=== PATIENT | female | born 1980 | race Two or more races ===

== ENCOUNTER 2019-04-05 23:13 | Emergency (ER) | payer OTHER ==
[~2019-04-05] VITALS: Ht 157.5 cm; Wt 68.0 kg
[2019-04-05 23:20] VITALS: BP 122/74
[2019-04-05] MEDS ORDERED: BACITRACIN TOPICAL OINT PACKET. TP STA (23:50)
--- NOTE | 2019-04-06 00:06 | PHYS DOC ---
Past Medical History Past Medical History: No Pertinent History (CHRISSY AGUILAR APRN) Past Surgical History: Other Additional Past Surgical Histo: Cyst removal from ovary (CHRISSY AGUILAR APRN) Smoking Status: Never Smoker Alcohol Use: None Drug Use: None (CHRISSY AGUILAR APRN) Attending Signature I have participated in the care of this patient and I have reviewed and agree with all pertinent clinical information above including history, exam, and recommendations. (NICKI BEAL MD) Adult General Chief Complaint Chief Complaint: [facility] HPI Patient is a 39 year old female who presents with a burn to the medial R forearm. The burn happened at work when she accidentally spilt cooking oil on the R forearm. She denies any medical history. She states that this injury happened around 5:00 PM. Complete ROS were reviewed and found to be within normal limits, except as documented in the HPI (CHRISSY AGUILAR APRN) Current Medications Current Medications Current Medications Medications (Trade) Dose Ordered Sig/Cha Start Time Stop Time Status Last Admin Dose Admin Bacitracin (Bacitracin Zinc Oint Pkt) 1 pkt 1X STAT 04/05/19 23:50 04/06/19 00:01 DC 04/05/19 23:55 1 PKT (NICKI BEAL MD) Allergies Allergies Allergies Coded Allergies Type Severity Reaction Last Updated Verified Unable to Assess 04/06/19 No (NICKI BEAL MD) Physical Exam Physical Exam Constitutional: Well developed, well nourished, no acute distress, non-toxic appearance. [] HENT: Normocephalic, atraumatic, bilateral external ears normal, oropharynx moist, no oral exudates, nose normal. [] Eyes: PERRLA, EOMI, conjunctiva normal, no discharge. [] Neck: Normal range of motion, no tenderness, supple, no stridor. [] Cardiovascular:Heart rate regular rhythm, no murmur [] Lungs & Thorax: Bilateral breath sounds clear to auscultation [] Skin: Patient has partial thickness burn to medial R forearm. Blisters are intact. The burn is not circumfrential and is <1% TBSA. Back: No tenderness, no CVA tenderness. [] Extremities: Has partial thickness burn to medial R forearm. Neurologic: Alert and oriented X 3, normal motor function, normal sensory function, no focal deficits noted. [] Psychologic: Affect normal, judgement normal, mood normal. [] (CHRISSY AGUILAR APRN) Current Patient Data Vital Signs Vital Signs Date Time Temp Pulse Resp B/P (MAP) Pulse Ox O2 Delivery O2 Flow Rate FiO2 04/05/19 23:20 98.4 79 16 122/74 (90) 98 Room Air 98.4 (NICKI BEAL MD) EKG EKG [] (CHRISSY AGUILAR APRN) Radiology/Procedures Radiology/Procedures [] (CHRISSY AGUILAR APRN) Course & Med Decision Making Course & Med Decision Making Pertinent Labs and Imaging studies reviewed. (See chart for details) Will have a Xeroform bandage with Bacitracin placed on the wound. Nursing will clean wound with baby shampoo first. Will then have patient follow up with wound clinic. (CHRISSY AGUILAR APRN) Dragon Disclaimer Dragon Disclaimer This electronic medical record was generated, in whole or in part, using a voice recognition dictation system. (CHRISSY AGUILAR APRN) Departure Departure Impression: Primary Impression: Partial thickness burn Disposition: HOME, SELF-CARE Condition: STABLE Referrals: NO PCP (PCP) NINA SALGADO DO Patient Instructions: Burn Care Additional Instructions: Thank you for visiting [facility]. We appreciate you trusting us with your care. If any additional problems come up don't hesitate to return to visit us. Please follow up with your primary care provider so they can plan additional care if needed and know about the problem that you had. If symptoms worsen come back to the Emergency Department. Any concerning symptoms that start such as chest pain, shortness of air, weakness or numbness on one side of the body, running high fevers or any other concerning symptoms return to the ER. Please follow up with Dr. Salgado at [facility] for further care. Please call tomorrow morning (04/06). CHRISSY AGUILAR APRN Apr 06, 2019 00:06 NICKI BEAL MD Apr 07, 2019 02:40
== END 2019-04-06 00:21 | disposition home or self-care (01) ==
LOC: ER 23:13
DX: T22.211A Burn of second degree of right forearm, initial encounter (principal); X10.2XXA Contact with fats and cooking oils, initial encounter; Y93.G3 Activity, cooking and baking; Y92.89 Other specified places as the place of occurrence of the external cause; Y99.8 Other external cause status
CPT/HCPCS: 16000; 16020; 99284